=== PATIENT | male | born 1945 | race Two or more races ===

== ENCOUNTER 2021-01-27 08:30 | Outpatient (CLI) | payer OTHER | END 2021-01-27 09:00 | disposition home or self-care (01) | LOC: PPH VACUNA 08:30 | PROVIDERS: ATTEND Emergency Medicine Pediatric Emergency Medicine | DX: Z23 Encounter for immunization (principal) ==

== ENCOUNTER 2021-01-27 09:10 | Outpatient (CLI) | payer OTHER | END 2021-01-27 09:12 | disposition home or self-care (01) | LOC: NUCLEAR 09:10 | PROVIDERS: ATTEND Internal Medicine Cardiovascular Disease | DX: M81.0 Age-related osteoporosis without current pathological fracture (principal); E55.9 Vitamin D deficiency, unspecified ==

== ENCOUNTER 2022-07-09 01:32 | Emergency (ER) | payer OTHER ==
[~2022-07-09] VITALS: Ht 167.6 cm; Wt 72.6 kg
[2022-07-09] MEDS ORDERED: METHOTREXATE2.5 MG PO (01:38)
[2022-07-09] MEDS ORDERED: FOLIC ACID1 MG PO (01:39)
[2022-07-09] MEDS ORDERED: RAYOS5 MG PO (01:39)
== END 2022-07-09 03:42 | disposition home or self-care (01) ==
LOC: ER 01:32
DX: R10.9 Unspecified abdominal pain (principal); K80.70 Calculus of gallbladder and bile duct without cholecystitis without obstruction

== ENCOUNTER 2022-07-10 14:15 | Inpatient (IN) | payer OTHER ==
[~2022-07-10] VITALS: Ht 152.4 cm; Wt 159.7 kg
[~2022-07-10 14:15] MED LIST: FOLIC ACID1 MG PO; METHOTREXATE2.5 MG PO; RAYOS5 MG PO
[2022-07-23] MEDS ORDERED: PREDNISONE 5MG PO (14:48)
[2022-07-23] MEDS ORDERED: INTEGRA PLUS C1 EACH PO (14:48)
[2022-07-23] MEDS ORDERED: TAMS0.4C PO (14:48)
[2022-07-23] MEDS ORDERED: PRE PROTEIN1 EACH PO (14:48)
[2022-07-23] MEDS ORDERED: FOLIC ACID1 MG PO (14:48)
[2022-07-23] MEDS ORDERED: FAMOTIDINE20 MG PO (14:48)
[2022-07-23] MEDS ORDERED: ABANEU-SL TABL1 EACH SL (14:48)
== END 2022-07-23 14:57 | disposition home or self-care (01) | DRG 415 ==
LOC: ER 14:15 → MEDI 07-11 00:13
PROVIDERS: Surgery; ADMIT Internal Medicine; ATTEND Internal Medicine
PROC: BW21Y0Z Computerized Tomography (CT Scan) of Abdomen and Pelvis using Other Contrast, Unenhanced and Enhanced (ICD-10-PCS; 2022-07-10)
PROC: BW40ZZZ Ultrasonography of Abdomen (ICD-10-PCS; 2022-07-10)
PROC: BF37ZZZ Magnetic Resonance Imaging (MRI) of Pancreas (ICD-10-PCS; 2022-07-11)
PROC: B246ZZZ Ultrasonography of Right and Left Heart (ICD-10-PCS; 2022-07-11)
PROC: 0FC98ZZ Extirpation of Matter from Common Bile Duct, Via Natural or Artificial Opening Endoscopic (ICD-10-PCS; 2022-07-13)
PROC: B54CZZZ Ultrasonography of Left Lower Extremity Veins (ICD-10-PCS; 2022-07-14)
PROC: 0FJ44ZZ Inspection of Gallbladder, Percutaneous Endoscopic Approach (ICD-10-PCS; 2022-07-15)
PROC: 0W9F0ZZ Drainage of Abdominal Wall, Open Approach (ICD-10-PCS; 2022-07-15)
PROC: 0FT40ZZ Resection of Gallbladder, Open Approach (ICD-10-PCS; principal; 2022-07-15 14:00)
PROC: 3E0F7GC Introduction of Other Therapeutic Substance into Respiratory Tract, Via Natural or Artificial Opening (ICD-10-PCS; 2022-07-16)
PROC: BV44ZZZ Ultrasonography of Scrotum (ICD-10-PCS; 2022-07-19)
DX: K80.00 Calculus of gallbladder with acute cholecystitis without obstruction (principal); K56.7 Ileus, unspecified; K80.42 Calculus of bile duct with acute cholecystitis without obstruction; K82.A2 Perforation of gallbladder in cholecystitis; L02.211 Cutaneous abscess of abdominal wall; N39.0 Urinary tract infection, site not specified; K82.A1 Gangrene of gallbladder in cholecystitis; K82.8 Other specified diseases of gallbladder; K66.0 Peritoneal adhesions (postprocedural) (postinfection); N50.89 Other specified disorders of the male genital organs; E88.09 Other disorders of plasma-protein metabolism, not elsewhere classified; M79.662 Pain in left lower leg; M79.661 Pain in right lower leg; D64.9 Anemia, unspecified; R10.11 Right upper quadrant pain; Z20.822 Contact with and (suspected) exposure to COVID-19; Z53.31 Laparoscopic surgical procedure converted to open procedure

== ENCOUNTER 2024-10-01 09:19 | Outpatient (CLI) | payer OTHER ==
[~2024-10-01 09:19] MED LIST changes: +ABANEU-SL TABL1 EACH SL; +FAMOTIDINE20 MG PO; +INTEGRA PLUS C1 EACH PO; +PRE PROTEIN1 EACH PO; +PREDNISONE 5MG PO; +TAMS0.4C PO
== END 2024-10-01 09:20 | disposition home or self-care (01) ==
LOC: NUCLEAR 09:19
PROVIDERS: ATTEND Internal Medicine Cardiovascular Disease
DX: G30.9 Alzheimer's disease, unspecified (principal); R41.2 Retrograde amnesia
CPT/HCPCS: 78803; A9557

== ENCOUNTER 2024-11-12 09:30 | Outpatient (CLI) | payer OTHER | END 2024-11-12 09:35 | disposition home or self-care (01) | LOC: TOM 09:30 | PROVIDERS: ATTEND Internal Medicine Cardiovascular Disease | DX: R51.9 Headache, unspecified (principal) ==

== ENCOUNTER → 2024-11-14 | Outpatient (CLI) | payer OTHER | END | disposition home or self-care (01) | LOC: MRI 09:16 | PROVIDERS: ATTEND Internal Medicine Cardiovascular Disease | DX: M12.9 Arthropathy, unspecified (principal); M46.47 Discitis, unspecified, lumbosacral region | CPT/HCPCS: 72141 ==

== ENCOUNTER 2024-12-01 13:30 | Emergency (ER) | payer OTHER ==
[~2024-12-01] VITALS: Ht 167.6 cm; Wt 69.4 kg
[2024-12-01] MEDS ORDERED: ORPHENADRINE CITRATE 30 MG/ML AMPUL IM ONE (15:15)
[2024-12-01] MEDS ORDERED: KETOROLAC TROMETHAMINE 30 MG VIAL IM ONE (15:15)
[2024-12-01] MEDS ORDERED: KETOROLAC TROMETHAMINE 30 MG VIAL ONE (15:30)
[2024-12-01] MEDS ORDERED: ORPHENADRINE CITRATE 30 MG/ML AMPUL ONE (15:31)
== END 2024-12-01 17:09 | disposition home or self-care (01) ==
LOC: ER 13:40
DX: M25.511 Pain in right shoulder (principal); G89.11 Acute pain due to trauma
CPT/HCPCS: 29105; 73030; 73070; 96372; 99283; J1885; J2360